=== PATIENT | male | born 1955 | race Caucasian/White ===

== ENCOUNTER 2018-09-30 05:45 | Inpatient (IN) ==
--- NOTE | 2018-09-21 08:44 | PAT Medication Instructions ---
Medication Instructions Date of Service September 21, 2018 Home Medications baclofen 10 mg PO BID famotidine [Pepcid AC] 20 mg PO QAM gabapentin 300 mg PO HS gemfibrozil 600 mg PO BID naproxen 500 mg PO BID prednisone 10 mg PO DAILY ASK your surgeon for instructions naproxen 500 mg PO BID STOP taking 24 hours before surgery gemfibrozil 600 mg PO BID DO NOT take the morning of surgery baclofen 10 mg PO BID Take morning of surgery With a small sip of water, OTHERWISE NOTHING TO EAT OR DRINK AFTER MIDNIGHT: famotidine [Pepcid AC] 20 mg PO QAM prednisone 10 mg PO DAILY Take evening before surgery baclofen 10 mg PO BID gabapentin 300 mg PO HS Other Notes If you have any questions please call us at [phone] or [phone] or [phone] or [phone]
--- NOTE | 2018-09-21 11:14 | Anesthesiology Consultation ---
Date of Service September 21, 2018 Assessment & Plan (1) Encounter for pre-operative examination: Chart Review Chart Review: Acceptable Risk for Surgery and Patient seen in Pre Admission Testing Teaching & Discussion Instructed NPO after midnight before surgery, except medications with 15 cc of water. Medication instructions provided according to the PAT guidelines. History Surgery Operation Date: 09/30/18 11:05 Proposed Procedures p L4-L5 Removal of Hardware; L2-L4, Possible L5, Decompression and Fusion, Spinal Cord Monitoring - Italo Ivy DO Height/Weight Height: 5 ft 10.5 in Weight: 99 kg Allergies Allergy/AdvReac Type Severity Reaction Status Date / Time ibuprofen [From Motrin] AdvReac Unknown Nausea Verified 09/16/18 09:54 morphine AdvReac Unknown N/V Verified 09/16/18 09:55 Medications Home Medications Medication Instructions Recorded Confirmed Last Taken famotidine [Pepcid AC] 20 mg PO QAM 09/16/18 09/16/18 09/16/18 gemfibrozil 600 mg PO BID 09/16/18 09/16/18 09/16/18 Past Medical History Medical History Anemia Hyperlipidemia Scoliosis Spinal stenosis Exercise / Class Metabolic Activity II 4-5 Yardwork/Stairs/Walk up hill (DENIES CP OR SOB WITH STAIRS, DOES DAILY) Past Surgical History Surgical History History of colonoscopy History of lumbar fusion History of neck surgery PIECE OF BONE OUT History of right knee surgery WIRE TO HOLD KNEE CAP TOGETHER Past Anesthesia History No Hx of Anesthesia Complications and No Family Hx of Anesthesia Complications History of PONV No Hx of PONV and No Hx of Motion Sickness Social History Smoking Status: Former smoker tobacco type: cigarettes Do You Dip or Chew Tobacco: No (HX OF - NONE CURRENTLY) Hx Alcohol Use: Yes alcohol intake frequency: holidays/special occasions only Hx Substance Use: No substance use type: does not use Review of Systems Pt denies any recent chest pain, shortness of breath, palpitations, cough, fever or URI. Physical Exam Vital Signs BP: 119/76 P: 65bpm SPO2: 96% RA T: 97.6 F R: 16 ENMT Mouth: + dentures (partial lower denture) and + chipped teeth; no loose teeth Thyromental Distance: > or= 3.5 Finger Breadths (3.5) Mallampati Class: I Missing several teeth Neck normal visual inspection, + limited neck extension (PAIN WITH EXTENSION) and + facial hair (medium length goatee and mustache, pt amenable to trimming) Respiratory normal respiratory effort Auscultation: lungs clear to auscultation bilaterally Cardiovascular Rate/Rhythm: regular rate and regular rhythm Heart Sounds: no murmur Vessels: no carotid bruit Extremities: no edema Testing Electrocardiogram Date: 09/21/18 Findings: + SB @ (58) Chest X-Ray Date: 09/21/18 Findings: + NAD Stress Test Date: 12/29/14 Resting EF: 67% Adequate cardiovascular stress test as patient obtained 96% of her age-predicted maximal target heart rate. The exercise echocardiographic examination is normal without EKG or echo evidence of inducible ischemia. Patient experienced fleeting atypical /10 chest and shoulder discomfort during exercise. No significant arrhythmias were noted. Normal blood pressure and heart rate response to exercise. Laboratory Results 09/21/18 10:51 09/21/18 10:51 Blood Type A Positive 09/21/18 10:51 Antibody Screen NEGATIVE 09/21/18 10:51 PT 9.8 Seconds (9.0-12.0) 09/21/18 10:51 INR 1.0 (0.9-1.1) 09/21/18 10:51 APTT 24.2 Seconds (21.0-31.0) 09/21/18 10:51 Urine Color Yellow 09/21/18 10:51 Urine Appearance Clear (Clear) 09/21/18 10:51 Urine pH 6.5 (4.5-7.5) 09/21/18 10:51 Ur Specific [place] 1.021 (1.000-1.030) 09/21/18 10:51 Urine Protein Negative (Negative) 09/21/18 10:51 Urine Glucose (UA) Negative (Negative) 09/21/18 10:51 Urine Ketones Negative (Negative) 09/21/18 10:51 Urine Nitrite Negative (Negative) 09/21/18 10:51 Ur Leukocyte Esterase Negative (Negative) 09/21/18 10:51
--- NOTE | 2018-09-21 11:39 | XRay Report ---
XR chest Pre-admission PA/Lat CLINICAL HISTORY: pat preoperative COMPARISON STUDY: No previous studies for comparison. FINDINGS: The bones soft tissues and hemidiaphragms are normal. The cardiomediastinal silhouette is n ormal. The lungs are clear. The pulmonary vasculature is normal. IMPRESSION: Negative chest. The above report was generated using voice recognition software. It may contain grammatical, syntax or spelling errors. Electronically signed by: Freddie Jeong M.D. 09/21/2018 11:38 AM
[2018-09-21 11:57] LABS: Basophils # (auto) 0.02 K/uL (0-0.2); Basophils % (auto) 0.5 %; Eosinophils # (auto) 0.08 K/uL (0-0.5); Eosinophils % (auto) 2.1 %; Hematocrit (blood only) 37.1 % (42-52); Hemoglobin 12.5 g/dL (14.0-18.0); Immature Granulocytes # (auto) 0.01 K/uL (0.00-0.02); Immature Granulocytes % (auto) 0.3 %; Lymphocytes # (auto) 1.53 K/uL (1.2-3.4); Lymphocytes % (auto) 40.1 %; Mean Corpuscular Hgb Conc 33.7 g/dL (32-36); Mean Corpuscular Volume 96.1 fL (80-100); Mean Platelet Volume 9.2 fL (7.4-10.4); Monocytes # (auto) 0.32 K/uL (0.11-0.59); Monocytes % (auto) 8.4 %; Neutrophils # (auto) 1.86 K/uL (1.4-6.5); Neutrophils % (auto) 48.6 %; Platelet Count 198 K/uL (130-400); RDW Coefficient of Variation 13.2 % (11.5-14.5); RDW Standard Deviation 46.4 fL (36.4-46.3); Red Blood Count 3.86 M/uL (4.7-6.1); White Blood Count 3.82 K/uL (4.8-10.8)
[2018-09-21 11:59] LABS: Appearance Urine Clear (Clear); Bilirubin Urine Negative (Negative); Blood Urine Negative (Negative); Color Urine Yellow; Glucose Urine UA Negative (Negative); Ketones Urine Negative (Negative); Leukocyte Esterase Urine Negative (Negative); Nitrite Urine Negative (Negative); Protein Urine Negative (Negative); Specific Gravity Urine 1.021 (1.000-1.030); Urobilinogen Urine Negative (Negative); pH Urine 6.5 (4.5-7.5)
[2018-09-21 12:05] LABS: BUN Creatinine Ratio 26.6 (10-20); Calcium 9.1 mg/dl (8.5-10.1); Creatinine Clr Calc Pharmacy 112.5 ml/min; Est GFR (African American) 110.4; Est GFR (Non-African American) 95.3; Potassium 4.1 mmol/L (3.5-5.1)
[2018-09-21 12:06] LABS: Partial Thromboplastin Ratio 0.9; Partial Thromboplastin Time 24.2 Seconds (21.0-31.0); Prothrombin Time 9.8 Seconds (9.0-12.0)
[2018-09-30] MEDS ORDERED: GABAPENTIN 300 MG x 2 PO SCH (06:00)
[2018-09-30] MEDS ORDERED: CeleBREX 200 MG CAP PO SCH (06:00)
[2018-09-30] MEDS ORDERED: CEFAZOLIN 2000MG 2,000 MG/15 ML SYR IV SCH (06:00)
[2018-09-30] MEDS ORDERED: LR 15ML/HR IV SCH (06:00)
[2018-09-30] MEDS ORDERED: ACETAMINOPHEN 500 MG TAB PO SCH (06:00)
[2018-09-30] MEDS ORDERED: MIDAZOLAM HCL 1 MG/ML 2ML VIAL ONE (06:36)
[2018-09-30] MEDS ORDERED: fentaNYL citrate 100 MCG/2 ML VIAL ONE ×5 (06:36→09:46)
[2018-09-30] MEDS ORDERED: HYDROmorphone INJ 2 MG/ML SYR/VIAL ONE ×3 (06:37→10:08)
[2018-09-30] MEDS ORDERED: PROPOFOL IV EMULSION 10 MG/ML 20 ML VIAL IV ONE (06:38)
[2018-09-30] MEDS ORDERED: DEXAMETHASONE SOD INJ 4 MG/ML VIAL ONE (06:38)
[2018-09-30] MEDS ORDERED: NEOSTIGMINE METHYLSULFATE 1 MG/ML 10ML VIAL ONE (06:38)
[2018-09-30] MEDS ORDERED: LIDOCAINE HCL 2% 2 ML VIAL/AMP(20MG/ML) INFIL ONE (06:38)
[2018-09-30] MEDS ORDERED: ROCURONIUM BROMIDE 10 MG/ML 5 ML VIAL ONE (06:38)
[2018-09-30] MEDS ORDERED: ONDANSETRON INJ 2 MG/ML 2 ML VIAL ONE (06:38)
[2018-09-30] MEDS ORDERED: GLYCOPYRROLATE 0.2 MG/ML VIAL ONE (06:38)
[2018-09-30] MEDS ORDERED: PROPOFOL IV EMULSION 10 MG/ML 100 ML VIAL IV ONE (06:42)
[2018-09-30] MEDS ORDERED: ATROPINE SULFATE 0.1 MG/ML 10ML SYR IV PRN (06:59)
[2018-09-30] MEDS ORDERED: PROMETHAZINE HCL 12.5 MG in SODIUM CHLORIDE 0.9% 50 ML IV PRN ×2 (06:59→11:41)
[2018-09-30] MEDS ORDERED: HYDROmorphone INJ 1 MG/ML SYRINGE IV PRN (06:59)
[2018-09-30] MEDS ORDERED: PHENYLEPHRINE 100MCG/ML 5ML SYR IV PRN (06:59)
[2018-09-30] MEDS ORDERED: ONDANSETRON INJ 2 MG/ML 2 ML VIAL IV PRN ×2 (06:59→11:41)
[2018-09-30] MEDS ORDERED: ePHEDrine sulfate 50 MG/ML AMP IV PRN (06:59)
[2018-09-30] MEDS ORDERED: BACITRACIN INJ 50,000 UNIT VIAL ONE (07:02)
[2018-09-30] MEDS ORDERED: BUPIVACAINE/EPINEPHRINE 0.5% MPF 1:200,000 30 ML VIAL ONE (07:02)
--- NOTE | 2018-09-30 07:32 | History & Physical Bridge Note ---
Date of Service September 30, 2018 History & Physical Bridge Note I have examined the patient, reviewed the History & Physical and in the interval since the performance of the History & Physical I have noted the following changes of clinical significance: no changes noted
--- NOTE | 2018-09-30 07:33 | History & Physical Report ---
Date of Service September 30, 2018 Assessment & Plan (1) Spinal stenosis, lumbar region with neurogenic claudication: Removal of hardware L4-5 decompression and fusion L2-L4 possible L5 Present on Admission?: Yes History of Present Illness Chief Complaint: Back and leg pain Primary Care Provider: Sean De Oliveira PA-C This is a 62-year-old male that presents with chronic persistent back and leg pain. After failing extensive course of nonoperative care is here for surgical intervention. Allergies Allergy/AdvReac Type Severity Reaction Status Date / Time ibuprofen [From Motrin] AdvReac Unknown Nausea Verified 09/30/18 06:12 morphine AdvReac Unknown N/V Verified 09/30/18 06:12 Home Medications Home Medications Medication Instructions Recorded Confirmed Type famotidine [Pepcid AC] 20 mg PO QAM 09/16/18 09/30/18 History gemfibrozil 600 mg PO BID 09/16/18 09/30/18 History Past Med/Surg History Medical History Anemia Hyperlipidemia Scoliosis Spinal stenosis Surgical History History of colonoscopy History of lumbar fusion History of neck surgery PIECE OF BONE OUT History of right knee surgery WIRE TO HOLD KNEE CAP TOGETHER Social History Preferred Language: Greek Communication Ability: Effective Certified Orthotic Fitter Required: No Beliefs That Will Affect Care: Roman Catholic Roman Catholic Beliefs: RASTAFARI Current Living Situation: Spouse Current Living Situation Comment: LIVES WITH AND DAUGHTER Other Information That Helps Us Care for You: No Feels Safe at Home: Yes Smoking Status: Former smoker Tobacco Type: cigarettes Do You Dip or Chew Tobacco: No (HX OF - NONE CURRENTLY) Hx Alcohol Use: Yes Hx Substance Use: No Physical Exam Vital Signs (Past 24 Hours): Last Vital Signs Temp 36.6 C 09/30/18 06:15 Pulse 68 09/30/18 06:15 Resp 20 09/30/18 06:15 BP 135/83 09/30/18 06:15 Pulse Ox 98 09/30/18 06:15 Physical Exam: Patient is alert and oriented and neurologically intact.
[2018-09-30] MEDS ORDERED: LABETALOL HCL IV 5 MG/ML 20ML IV ONE ×2 (08:23→10:11)
[2018-09-30] MEDS ORDERED: VOLUVEN IN NSS IV ONE ×2 (09:34→09:42)
[2018-09-30] MEDS ORDERED: FLOSEAL HEMOSTATIC MATRIX 10ML TOP ONE (10:09)
[2018-09-30] MEDS ORDERED: KETOROLAC 30 MG/ML VIAL ONE (10:11)
[2018-09-30] MEDS ORDERED: ESMOLOL HCL INJ 10 MG/ML 10ML VIAL IV ONE (10:11)
[2018-09-30] MEDS ORDERED: ePHEDrine sulfate 50 MG/ML SYR ONE (10:11)
--- NOTE | 2018-09-30 10:13 | Operative Report ---
Post Operative Report Pre & Post Diagnosis Operation Date: 09/30/18 07:45 Pre-Op Diagnosis: Lumbar spinal stenosis with neurogenic claudication Post-Op Diagnosis: Same Procedure Operation Date: 09/30/18 07:45 Actual Procedures #1 removal of posterior instrumentation L4-5. #2 expiration fusion L4-5 per #3 lumbar decompression with bilateral medial facetectomies and foraminotomies L1- L2 3 L3-4. #4 posterior spinal fusion L2-3 L3-4. #5 placement posterior segmental instrumentation using globus rods and screws L2-3 L3-4. #6 interbody fusion L2-3 L3-4. #7 placement of peek cage 10 x 26 mm L2-3 and 13 x 26 mm at all 4. #8 placement of local autograft in the posterior lateral gutters. #9 placement infuse collagen sponge mass graft in the posterior lateral gutters and ostial amp and interbody space. Surgeon Italo Ivy, Quiller Operator Margo Talavera Estimated Blood Loss 475 Findings See Below Patient had excessive blood loss throughout the procedure secondary to considerable bony overgrowth of the hardware. This did create if occult he with visualization throughout the procedure adding at least 25% increase in operative time. Specimens None Indications This is a 62-year-old male who presents with above-mentioned diagnosis. After failing extensive course of nonoperative care like to undergo the above-mentione d procedure. Description of Procedure Patient was met with preoperatively identified and informed consent obtained. Patient was then taken to the operative suite underwent intubation placed in a prone position the Jose table on top of the Drew frame. All bony prominences well-padded eyes inspected to ensure no external pressure placed upon the peer at this point the lumbar spine was prepped and draped in the normal sterile fashion. Sharp dissection with the assistance of Bovie cautery was performed down to and exposing the lamina and transverse processes of L2-L3 and instrumentation at L4-5 bilaterally. Then proceeded to remove the hardware at L4-5 bilaterally I explored the fusion mass noting to be intact. Then performed a complete laminectomy of L3 L2 and partial laminectomy of L1 including bilateral medial facetectomies and foraminotomies addressing severe stenosis and foraminal disease. Pedicle screws were then placed in L2-L3-L4 bilaterally with assistance of fluoroscopy and appropriately size nieves placed. By way of a transforaminal approach right complete discectomy of L3-4 was performed in plate graded to subcortical bleeding bone and a 13 x 26 mm peek cage filled with ostium bone graft tapped in position. Then proceeded to L2-[address] of a transforaminal approach on the right complete discectomy performed in plate graded to subcortical mean bone and a 10 x 26 mm peek cage filled ostium bone graft tapped in position. The rods were then locked in final position bilaterally. The transverse processes of L2-L3-L4 burred to subcortical bleeding bone. Infuse collagen sponge mass graft local autograft placed in the posterior lateral gutters. 15 round ADILIA drain inserted. Incision was then closed with 1 Vicryl in the fascia 2-0 Vicryl subcutaneously and 4-0 Monocryl for final skin closure. Steri-Strip sterile dressings placed. Patient will continue to PACU stable condition. Please note Margo Talavera present throughout the entire procedure involved the patient positioning complex portions of the surgery and final skin closure. Spinal cord monitoring was utilized and no changes noted. I attest to the content of the Intraoperative Record and any orders documented therein. Any exceptions are noted below.
[2018-09-30] MEDS: fentaNYL citrate 100 MCG/2 ML VIAL IV PRN ×3 (10:33→10:53)
--- NOTE | 2018-09-30 10:40 | Fluoroscopy Report ---
FL lumbar spine 2-3V HISTORY: 62 years-old Male L4-L5 HARDWARE REMOVAL/ L2-L4 POSSIBLE L5 DECOMP AND FUSION status post d ecompression with fusion. Chronic low back pain COMPARISON: Lumbar spine radiographs 12/07/2010 TECHNIQUE: 3 spot fluoroscopic images of the lumbar spine were obtained utilizing 16.7 seconds fluoro scopy time FINDINGS: Posterior decompression changes of the lumbar spine. Interbody nieves and screw fusion at what appears t o be the L2-L4 levels with discectomy changes at L2-L3, L3-L4 and L4-L5. There is a few millimeters r etrolisthesis L2 on L3 and L1 on L2. Multilevel spondylitic spurring. IMPRESSION: Fluoroscopic assistance as above. Please see operative report for further details. The above report was generated using voice recognition software. It may contain grammatical, syntax o r spelling errors. Electronically signed by: Olvin Arzola M.D. 09/30/2018 10:38 AM
--- NOTE | 2018-09-30 11:16 | Anesthesiology Progress Note ---
Date of Service September 30, 2018 Anesthesia Post Procedure Vital Signs Vital Signs: Temp Pulse Pulse Resp BP Pulse Ox 09/30/18 11:00 36.0 C L 60 12 123/68 99 09/30/18 10:50 60 12 124/72 98 09/30/18 10:40 58 L 13 120/69 99 09/30/18 10:30 67 12 135/74 99 09/30/18 10:23 36.3 C L 74 14 129/75 98 09/30/18 06:15 36.6 C 68 20 135/83 98 Pain Intensity Lower Back: Pain Intensity: 4 Transfer of Care Handoff Completed per policy Notes Mental Status: alert / awake / arousable Patient Amnestic to Procedure: Yes Nausea / Vomiting: adequately controlled Pain: adequately controlled Airway Patency, RR, SpO2: stable & adequate BP & HR: stable & adequate Hydration State: stable & adequate Anesthetic Complications: no major complications apparent Notes: Awake, doing well, no complaints, VSS.
[2018-09-30] MEDS ORDERED: HYDROmorphone INJ 0.5 MG/0.5 ML SYR IV PRN (11:41)
[2018-09-30] MEDS ORDERED: DO NOT ADMINISTER PNEUMOCOCCAL VACCINE PRN (11:41)
[2018-09-30] MEDS ORDERED: DO NOT ADMINISTER FLU VACCINE PRN (11:41)
[2018-09-30] MEDS ORDERED: BISACODYL 10 MG SUPP PR PRN (11:41)
[2018-09-30] MEDS ORDERED: FAMOTIDINE 20 MG TAB PO PRN (11:41)
[2018-09-30] MEDS ORDERED: ACETAMINOPHEN 500 MG TAB PO PRN (11:41)
[2018-09-30] MEDS ORDERED: METOCLOPRAMIDE HCL INJ 5 MG/ML 2 ML VIAL IV PRN (11:41)
[2018-09-30] MEDS ORDERED: MAGNESIUM HYDROXIDE SUSP 30 ML UDC PO PRN (11:41)
[2018-09-30] MEDS ORDERED: LORazepam 0.5 MG TAB PO PRN (11:41)
[2018-09-30] MEDS ORDERED: LORazepam 0.5 MG/1 ML VIAL IV PRN (11:41)
[2018-09-30] MEDS ORDERED: ONDANSETRON 4 MG TAB PO PRN (11:41)
[2018-09-30] MEDS ORDERED: SOD PHOSPHATE/SOD BIPHOSPHATE ENEMA 132 ML BTL PR PRN (11:41)
[2018-09-30] MEDS ORDERED: ALUMINUM/MAGNESIUM SUSP 30 ML UDC PO PRN (11:41)
[2018-09-30] MEDS: KETOROLAC TROMETHAMINE 15 MG/ML VIAL IV SCH ×3 (12:03→23:17)
[2018-09-30] MEDS: LACTATED RINGER'S 1,000 ML IV SCH ×2 (12:03→18:56)
[2018-09-30] MEDS ORDERED: METOCLOPRAMIDE HCL INJ 5 MG/ML 2 ML VIAL ONE (12:55)
[2018-09-30] MEDS: CEFAZOLIN 2000MG 2,000 MG/15 ML SYR IV SCH ×2 (16:19→23:17)
[2018-09-30] MEDS: GEMFIBROZIL 600 MG TAB PO SCH (21:01)
[2018-09-30] MEDS: DOCUSATE SODIUM/SENNA 50/8.6MG TAB PO SCH (21:01)
[2018-10-01] MEDS: LACTATED RINGER'S 1,000 ML IV SCH (01:16)
[2018-10-01] MEDS: OXYCODONE HCL IR 5 MG TAB (IMMEDIATE RELEASE) PO PRN ×5 (04:49→20:29)
[2018-10-01] MEDS: POLYETHYLENE (MIRALAX) 17 GM PACK PO SCH ×4 (05:08→23:35)
[2018-10-01] MEDS: KETOROLAC TROMETHAMINE 15 MG/ML VIAL IV SCH (05:08)
[2018-10-01 05:38] LABS: Basophils # (auto) 0.01 K/uL (0-0.2); Basophils % (auto) 0.1 %; Eosinophils # (auto) 0.05 K/uL (0-0.5); Eosinophils % (auto) 0.7 %; Hematocrit (blood only) 28.7 % (42-52); Hemoglobin 9.7 g/dL (14.0-18.0); Immature Granulocytes # (auto) 0.01 K/uL (0.00-0.02); Immature Granulocytes % (auto) 0.1 %; Lymphocytes # (auto) 2.23 K/uL (1.2-3.4); Lymphocytes % (auto) 31.3 %; Mean Corpuscular Hgb Conc 33.8 g/dL (32-36); Mean Corpuscular Volume 95.7 fL (80-100); Mean Platelet Volume 8.4 fL (7.4-10.4); Monocytes # (auto) 0.53 K/uL (0.11-0.59); Monocytes % (auto) 7.4 %; Neutrophils % (auto) 60.4 %; Platelet Count 186 K/uL (130-400); RDW Coefficient of Variation 13.2 % (11.5-14.5); RDW Standard Deviation 45.7 fL (36.4-46.3); White Blood Count 7.13 K/uL (4.8-10.8)
[2018-10-01 06:10] LABS: BUN Creatinine Ratio 20.3 (10-20); Calcium 8.4 mg/dl (8.5-10.1); Est GFR (African American) 113.3; Est GFR (Non-African American) 97.8; Potassium 3.7 mmol/L (3.5-5.1)
[2018-10-01] MEDS: TRAMADOL HCL 50 MG TABLET PO PRN ×3 (07:45→18:11)
[2018-10-01] MEDS: GEMFIBROZIL 600 MG TAB PO SCH ×2 (07:46→18:11)
[2018-10-01] MEDS: FAMOTIDINE 20 MG TAB PO SCH (07:46)
--- NOTE | 2018-10-01 15:53 | Orthopedic Progress Note ---
Date of Service October 01, 2018 Assessment & Plan (1) Spinal stenosis, lumbar region with neurogenic claudication: This time we will advance his activity and advance his bowel regiment monitor his ADILIA output anticipate discharge home in the next few days. Present on Admission?: Yes Subjective Patient's back pain is controlled leg symptoms improved. Physical Exam Physical Exam: Patient is in the chair at the bedside. Appears comfortable. Is good strength testing. Results & Data Vital Signs (Past 12 Hours) Vital Signs Temp Pulse Pulse Resp BP BP Pulse Ox 10/01/18 15:34 36.8 C 60 16 107/63 99 10/01/18 11:06 36.5 C 54 L 18 103/62 99 10/01/18 07:00 36.6 C 56 L 19 103/64 97
[2018-10-01] MEDS: DOCUSATE SODIUM/SENNA 50/8.6MG TAB PO SCH (20:29)
[2018-10-01] MEDS: ACETAMINOPHEN 1,000 MG/100 ML VIAL IV PRN (20:30)
[2018-10-02] MEDS: OXYCODONE HCL IR 5 MG TAB (IMMEDIATE RELEASE) PO PRN ×3 (04:36→23:30)
[2018-10-02] MEDS: POLYETHYLENE (MIRALAX) 17 GM PACK PO SCH ×4 (07:07→23:26)
[2018-10-02] MEDS: TRAMADOL HCL 50 MG TABLET PO PRN ×2 (07:11→15:38)
[2018-10-02] MEDS: ACETAMINOPHEN 1,000 MG/100 ML VIAL IV PRN (08:22)
[2018-10-02] MEDS: GEMFIBROZIL 600 MG TAB PO SCH ×2 (08:24→20:55)
[2018-10-02] MEDS: FAMOTIDINE 20 MG TAB PO SCH (08:24)
--- NOTE | 2018-10-02 15:22 | Orthopedic Progress Note ---
Date of Service October 02, 2018 Assessment & Plan (1) Spinal stenosis, lumbar region with neurogenic claudication: This time we will advance his bowel regiment monitor his ADILIA output anticipate discharge home tomorrow. Present on Admission?: Yes Subjective Patient's back pain is controlled leg symptoms are improved. He has not had a bowel movement as of yet. Physical Exam Physical Exam: On exam he is sitting in a chair at the bedside. Is good strength testing. Results & Data Vital Signs (Past 12 Hours) Vital Signs Temp Pulse Resp BP Pulse Ox 10/02/18 12:00 37 C 63 18 128/68 96 10/02/18 08:03 37.5 C 82 18 128/66 95
[2018-10-02] MEDS: DOCUSATE SODIUM/SENNA 50/8.6MG TAB PO SCH (20:55)
[2018-10-03] MEDS: OXYCODONE HCL IR 5 MG TAB (IMMEDIATE RELEASE) PO PRN ×3 (05:00→13:29)
[2018-10-03] MEDS: POLYETHYLENE (MIRALAX) 17 GM PACK PO SCH (06:06)
[2018-10-03] MEDS: GEMFIBROZIL 600 MG TAB PO SCH (07:27)
[2018-10-03] MEDS: FAMOTIDINE 20 MG TAB PO SCH (07:28)
[2018-10-03] MEDS ORDERED: DEXAMETHASONE **PF** INJ 10 MG/ML VIAL IV ONE (10:13)
--- NOTE | 2018-10-03 10:30 | Orthopedic Progress Note ---
Date of Service October 03, 2018 Assessment & Plan (1) Spinal stenosis, lumbar region with neurogenic claudication: This time we will allow him to go home today. I will give him a dose of Decadron to help with inflammation. Present on Admission?: Yes Subjective Patient's back pain is controlled leg pain improved. He did have a bowel movement. Physical Exam Physical Exam: Exam is good strength testing. Appears comfortable. Results & Data Vital Signs (Past 12 Hours) Vital Signs Temp Pulse Pulse Resp BP Pulse Ox 10/03/18 06:29 37.1 C 65 18 108/64 94 10/03/18 04:56 50 L 16 104/58 L 96 10/02/18 23:43 37.6 C H 80 14 106/63 97
--- NOTE | 2018-10-03 10:31 | Discharge Summary ---
Date of Service October 03, 2018 Admission HPI Per Admitting Provider This is a 62-year-old male that presents with chronic persistent back and leg pain. After failing extensive course of nonoperative care is here for surgical intervention. Principal Diagnosis Lumbar spinal stenosis with neurogenic claudication Discharge Data Allergies Allergy/AdvReac Type Severity Reaction Status Date / Time ibuprofen [From Motrin] AdvReac Unknown Nausea Verified 09/30/18 06:12 morphine AdvReac Unknown N/V Verified 09/30/18 06:12 Consultations 09/30/18 11:41 Consult Case Management - Discharge Planning Routine Procedures Performed Operation Date: 09/30/18 07:45 Actual Procedures p L2-L5 Decompression and Fusion, Spinal Cord Monitoring(Not Applicable) - Italo Ivy DO s L4-L5 Removal of Hardware;(Not Applicable) - Italo Ivy DO Ordered Studies 09/30/18 07:45 FL fluoroscopy <1hr Routine [place] lumbar spine 2-3V Routine Hospital Course (1) Spinal stenosis, lumbar region with neurogenic claudication: Patient with lumbar decompression fusion tolerated as well as taken to orthopedic for postoperative. Postop day 1 is up and ambulating progressed to postop day #2 subsequent discharge home postop day 3. Discharge orders and instructions from the chart for further review. Total Time Total Time Spent Total Time Spent (In Minutes): 20 minutes Discharge Plan Discharge Items Patient Disposition: Home - Self-Care Reason For Visit: Other Biomechanical Lesions of Lumbar Region Discharge Diagnosis: lumbar stenosis Discharge Goals: Improve function Activity: Per 'Additional Instructions' section Non-emergency contact: Primary Care Provider Call non-emergency contact if: you have any medication questions Follow-up/Referrals: Sean De Oliveira PA-C [Primary Care Provider] - Diet: Regular Addtl Provider Instructions: ACTIVITY RECOMMENDATIONS: SELF CARE INSTRUCTIONS AFTER THORACIC/LUMBAR FUSIONS 1. You may walk to your tolerance. It is good exercise for your legs and back. Expect some back and intermittent leg aches and pains. 2. You may perform "counter-top" level activities (make a sandwich, vira with a project, etc.). 3. No bending or lifting of more than 10 pounds or back twisting of any nature (roll like a log when turning in bed). 4. You may ride in a car for 20-30 minutes at a time. No driving until after your first visit with your doctor. 5. Frequent changes of position and restricting sitting to 30 minutes at a time will help limit the amount of back spasms and stiffness you may experience. 6. You may discontinue the use of ambulatory aids (cane, crutches, etc.) once your strength and confidence allow. 7. You may head of maintenance the shower and let water strike your incision when you arrive home at least once daily. Do not take a tub bath, sit in a hot tub or go into a swimming pool until after your first recheck in the office. SPECIAL CARE INSTRUCTIONS: VERY IMPORTANT TO READ AND REVIEW A. Your surgical incision has been closed with a cosmetic suture under the skin that will dissolve in about 6 weeks. In 14 days, you can use a pair of clean scissors and cut the suture that is left outside of the skin at the ends of your incision. 1. The small skin tapes can be removed 7 days after surgery if they have not fallen off by that point. 2. You may keep the wound open to air as much as possible to promote healing after post-op day number 5 unless told otherwise by your doctor. 3. If you think the wound looks like it is becoming infected (redness or worsening drainage) and/or you are experiencing fever, chill or worsening back pain and muscle spasms, contact the office so that we may evaluate you as soon as possible. B. Complications are uncommon, but please contact us if you have any signs or symptoms of: 1. wound infection (fever higher than 102.5 degrees F, redness, separation of wound, drainage, or increasing pain from the incision) 2. blood clots in legs (pain, swelling, redness and warmth in legs) 3. urinary tract infection (fever higher than 102.5 degrees F, burning upon urination or increased frequency of urination) 4. nerve problems (inability to walk on your toes or heels, numbness, loss of bowel or bladder control) 5. any other symptoms that concern you C. Please call the office at if you have any concerns or questions about your operation or recovery. D. No smoking! Smoking drastically decreases the chance of a solid fusion. E. Do not take any anti-inflammatory medications (Indocin, Advil, Motrin, Aspirin, Naprosyn, etc.) as these may inhibit the chance of a solid fusion. Tylenol is okay to take for pain. MANAGING PAIN AFTER SPINAL SURGERY 1. Narcotic medication is intended for short-term use and will be provided for surgical pain. Surgical pain usually lasts for a period of 4-6 weeks. Narcotic medication includes Percocet, Vicodin, Darvocet, Tylenol #3 or Lortab. 2. Longer-term pain is more appropriately treated with non-narcotic medication such as Tylenol ES. 3. Muscle spasm is not appropriately treated with narcotics. Muscle relaxers such as Soma, Flexeril or Skelaxin can be used along with Tylenol ES. 4. Remember that we all live with some "aches and pains". This is not unusual or uncommon after an injury or as we get older. a. Back pain is expected and may include muscle spasms for 4 to 6 weeks after surgery. The pain should gradually improve. If the pain worsens for no apparent reason, please contact the office. b. Intermittent leg pain may also be experienced and should not be concerned about unless it worsens for no apparent reason. If so, please contact the office. 5. We will provide appropriate medication within the normal guidelines of their prescribed use. We will also be very cautious and aware of potential abuse and extended duration of patients' medication needs. a. Pain medications are for your comfort and to assist with sleep and rest so that the tissue can heal. They are not provided in order to return to normal activity and should not be used through the day. To do so or worsening pain at night can result from ongoing tissue damage and development of tolerance to the prescribed medicine. 6. Please allow 2-3 days to process refills. Prescriptions will not be mailed but must be picked up at the office. FOLLOW UP VISIT: Keep your scheduled follow-up appointment. Any questions, please call the office at . Prescriptions: New tramadol 50 mg Tablet 50 mg PO Q4H PRN (Reason: Pain, Moderate) Qty: 30 RF: 0 oxycodone 5 mg Tablet 5 mg PO Q4H PRN (Reason: Pain, Severe) Qty: 30 RF: 0 Continued famotidine [Pepcid AC] 20 mg Tablet 20 mg PO QAM RF: 0 gemfibrozil 600 mg Tablet 600 mg PO BID RF: 0 Stand-Alone Forms: [facility] Discharge Orders: Discharge Order (Routine); Ordered 10/03/18 Ordered By: Italo Ivy Admission Data Admit Date/Time: 09/30/18 10:33 Attending Provider: Italo Ivy Admit Provider: Italo Ivy Primary Care Provider: Sean De Oliveira Service: Surgical Services
[2018-10-03] MEDS ORDERED: DEXAMETHASONE SOD PHOSPHATE 8 MG in SYRINGE 0 ML IV ONE (11:00)
== END 2018-10-03 14:52 | disposition home or self-care (01) | DRG 455 ==
LOC: PAT 05:45 → 3E 10:33